=== PATIENT | female | born 1985 | race Caucasian/White ===

== ENCOUNTER → 2018-01-04 | Outpatient (CLI) | payer BC ==
[~2018-01-04] MED LIST: ALLEGRA-D TABLE1 TAB PO; NO HOME MEDICATIONS; PROZAC40 MG PO
== END ==
LOC: COL.RAD 01-03 07:30
DX: R10.9 Unspecified abdominal pain (principal); K59.00 Constipation, unspecified; K58.0 Irritable bowel syndrome with diarrhea; E66.9 Obesity, unspecified

== ENCOUNTER 2018-01-12 10:16 | Day surgery (SDC) | payer BC ==
[~2018-01-12] VITALS: Ht 165.1 cm; Wt 84.9 kg
[2018-01-12 10:46] VITALS: BP 136/93; PULSE 96; TEMP 98.4
[2018-01-12] MEDS ORDERED: NUVARING VAG RING VG (10:53)
[2018-01-12] MEDS ORDERED: FLONASEALLERGY NS (10:54)
[2018-01-12] MEDS ORDERED: ZANTAC 150MG T150 MG PO (10:54)
[2018-01-12] MEDS ORDERED: TOPAMAX50 MG PO (10:54)
[2018-01-12] MEDS ORDERED: ZOLOFT 100MG100 MG PO (10:55)
[2018-01-12] MEDS ORDERED: INDERAL40 MG PO (10:55)
[2018-01-12] MEDS ORDERED: PRIL40 PO (10:55)
[2018-01-12 13:14] VITALS: BP 119/82; PULSE 88; TEMP 98.1
[2018-01-12 13:30] VITALS: BP 117/75; PULSE 101
[2018-01-12 13:45] VITALS: BP 115/72; PULSE 68
[2018-01-12 14:00] VITALS: BP 113/80; PULSE 97
== END 2018-01-12 14:45 | disposition home or self-care (01) ==
LOC: SDCO 10:16
DX: K52.89 Other specified noninfective gastroenteritis and colitis (principal); K62.89 Other specified diseases of anus and rectum; K58.0 Irritable bowel syndrome with diarrhea; K21.9 Gastro-esophageal reflux disease without esophagitis; R11.2 Nausea with vomiting, unspecified; K30 Functional dyspepsia; Z79.899 Other long term (current) drug therapy
CPT/HCPCS: J2250; J3010; J7030

== ENCOUNTER → 2018-02-19 | Outpatient (CLI) | payer BC ==
[~2018-02-19] MED LIST changes: +FLONASEALLERGY NS; +INDERAL40 MG PO; +NUVARING VAG RING VG; +PRIL40 PO; +TOPAMAX50 MG PO; +ZANTAC 150MG T150 MG PO; +ZOLOFT 100MG100 MG PO
== END ==
LOC: COL.RAD 09:00
DX: R19.7 Diarrhea, unspecified (principal); K59.00 Constipation, unspecified; K58.9 Irritable bowel syndrome, unspecified

== ENCOUNTER 2019-01-19 17:40 | Emergency (ER) | payer BC ==
[~2019-01-19] VITALS: Ht 165.1 cm; Wt 81.8 kg
[2019-01-19 17:44] VITALS: TEMP 98.6
[2019-01-19 18:24] LABS: BASO # 0.1 (0.0-0.2); BASO % 0.9 % (0.0-2.0); EOS # 0.2 (0.0-0.7); GRAN # 5.9 (1.4-6.5); GRAN % 67.1 % (42.2-75.2); HEMATOCRIT 42.2 % (37.0-47.0); HEMOGLOBIN 14.2 g/dl (12.5-16.0); LYMPH # 2.1 (1.2-3.4); LYMPH % 23.9 % (20.0-51.0); MEAN CELL VOLUME 89 fl (80.0-100.0); MEAN CORPUSCULAR HEMOGLOBIN 30 pg (27.0-31.0); MEAN CORPUSCULAR HGB CONC 34 g/dl (33.0-37.0); MEAN PLATELET VOLUME 9.6 fl (7.4-10.4); MONO # 0.5 (0.1-0.6); MONO % 5.9 % (1.7-9.3); PLATELET COUNT 394 K/mm3 (130-400); RED BLOOD COUNT 4.73 M/mm3 (4.10-5.30); REDCELL DISTRIBUTION WIDTH-CV 12.4 % (11.5-14.5)
[2019-01-19 18:33] LABS: ALANINE AMINOTRANSFERASE < 6 U/L (9-52); ALBUMIN 4.3 gm/dL (3.5-5.0); ALKALINE PHOSPHATASE 92 U/L (50-136); ANION GAP 14 mmol/L (7-16); AST,SGOT 21 U/L (15-37); BILIRUBIN,TOTAL 0.5 mg/dL (0.0-1.0); BLOOD UREA NITROGEN 8 mg/dL (7-17); C-REACTIVE PROTEIN 0.5 mg/dL (0.0-0.9); CALCIUM 9.9 mg/dL (8.4-10.2); CARBON DIOXIDE 23 mmol/L (22-30); CHLORIDE 105 mmol/L (98-107); CREATININE, serum 0.67 (0.52-1.25); GLUCOSE 99 mg/dL (74-106); POTASSIUM 4.2 mmol/L (3.4-5.0); SODIUM 141 mmol/L (137-145); TOTAL PROTEIN 7.8 gm/dL (6.4-8.2)
[2019-01-19] MEDS ORDERED: LEVBID0.375 MG (18:56)
[2019-01-19] MEDS ORDERED: LEVAQUIN 5500 MG/TA1 PO (19:10)
[2019-01-19 19:24] VITALS: BP 113/71; PULSE 73
== END 2019-01-19 19:28 | disposition home or self-care (01) ==
LOC: COL.ER 17:40
PROVIDERS: Emergency Medicine
DX: J32.9 Chronic sinusitis, unspecified (principal); G43.909 Migraine, unspecified, not intractable, without status migrainosus; F32.9 Major depressive disorder, single episode, unspecified; Z79.51 Long term (current) use of inhaled steroids
CPT/HCPCS: J0780; J1200; J1885; J3010; J7030